=== PATIENT | female | born 1965 | race African-American/Black ===

== ENCOUNTER 2017-04-15 10:57 | Emergency (ER) | payer MEDICARE, MEDICAID ==
[~2017-04-15 10:57] MED LIST: Sodium Chloride 0.9% 1,000 ML BAG ONE
[2017-04-15 11:50] LABS: Bilirubin Negative (Negative); Blood, Urine Negative (Negative); Clarity Clear (Clear); Glucose, Urine (Dipstick) 250 mg/dL (Negative); Leukocyte Negative (Negative); Nitrite Negative (Negative); Protein, Urine (Dipstick) 100 mg/dL (Neg-Trace)
[2017-04-15 12:03] LABS: Bacteria/HPF 1+ HPF (None Seen); RBC/HPF 0-3 HPF (0-3); WBC/HPF 0-3 HPF (0-3)
[2017-04-15 12:44] LABS: #Basophils 0.3 thou/uL (0.0-0.2); #Eosinphils 0.1 thou/uL (0.0-0.7); #Lymphocytes 1.6 thou/uL (1.20-3.40); #Neutrophils 13.1 thou/uL (1.40-6.50); %Basophils 1.8 % (0.0-1.0); %Eosinophils 0.4 % (0.0-10.0); %Monocytes 6.3 % (0.0-10.0); %Neutrophils 81.5 % (42.0-75.0); Hemoglobin 10.9 g/dL (12.0-16.0); Mean Corpuscular HGB CONC 31.4 g/dL (32.0-36.0); Mean Corpuscular Hemoglobin 27.7 pg (27.0-31.0); Mean Corpuscular Volume 88.3 fl (81.0-99.0); Mean Platelet Volume 7.9 fL (7.4-10.4); Platelet Count 424 thou/uL (130-400); Red Blood Cell (RBC) Count 3.93 mill/uL (4.20-5.40); White Blood Cell (WBC) Count 16.1 thou/uL (4.8-10.8)
[2017-04-15 13:03] LABS: ALT (SGPT) 17 U/L (8-55); AST (SGOT) 41 U/L (5-34); Albumin 3.6 g/dL (3.5-5.0); Alkaline Phosphatase 203 U/L (40-150); Anion Gap 17 mmol/L (10-20); BUN (Urea Nitrogen) 16 mg/dL (9.8-20.1); Bilirubin, Total 0.5 mg/dL (0.2-1.2); Calc. Creatinine Clearance 0 mL/min (70-130); Calcium 9.8 mg/dL (7.8-10.44); Carbon Dioxide 26 mmol/L (22-29); Chloride 95 mmol/L (98-107); Estimated GFR-MDRD 74; Globulin 4.5 g/dL (2.4-3.5); Glucose 265 mg/dL (70-105); Lipase 18 U/L (8-78); Potassium 4.8 mmol/L (3.5-5.1); Protein, Total 8.1 g/dL (6.0-8.3); Sodium 133 mmol/L (136-145)
[2017-04-15 13:04] LABS: CKMB 1.2 ng/mL (0-6.6); Troponin I Less than 0.010 ng/mL (< 0.028)
[2017-04-15] MEDS ORDERED: Ondansetron HCl/PF 4 MG/2 ML Vial ONE (13:48)
[2017-04-15] MEDS ORDERED: Ketorolac Tromethamine 30 MG/ML VIAL ONE (13:48)
[2017-04-15] MEDS ORDERED: Pantoprazole 40 MG VIAL ONE (13:48)
== END 2017-04-15 14:45 | disposition home or self-care (01) ==
LOC: MADERS 10:57
DX: K25.9 Gastric ulcer, unspecified as acute or chronic, without hemorrhage or perforation (principal); M10.9 Gout, unspecified; E11.9 Type 2 diabetes mellitus without complications; E78.00 Pure hypercholesterolemia, unspecified; F17.210 Nicotine dependence, cigarettes, uncomplicated; I10 Essential (primary) hypertension; Z79.4 Long term (current) use of insulin; Z79.82 Long term (current) use of aspirin; Z79.899 Other long term (current) drug therapy; Z85.3 Personal history of malignant neoplasm of breast; Z79.02 Long term (current) use of antithrombotics/antiplatelets
CPT/HCPCS: 36415; 80053; 81003; 81015; 82150; 82553; 83605; 83690; 84484; 85025; 87086; 96361; 96374; 96375; C9113; J1885; J2405; J7050

== ENCOUNTER 2017-05-18 11:14 | Emergency (ER) | payer MEDICARE, MEDICAID ==
[2017-05-18 13:45] LABS: Hemoglobin 9.6 g/dL (12.0-16.0); Lymphocytes 16 % (21-51); MDiff Complete? YES; Mean Corpuscular HGB CONC 32.4 g/dL (32.0-36.0); Mean Corpuscular Hemoglobin 27.9 pg (27.0-31.0); Monocytes 3 % (0-10); Neutrophil 81 % (42-75); PLT Morphology Comment Appears Increased; Platelet Count 419 thou/uL (130-400); RBC Distribution Width 14.4 % (11.5-14.5); Red Blood Cell (RBC) Count 3.43 mill/uL (4.20-5.40); White Blood Cell (WBC) Count 16.1 thou/uL (4.8-10.8)
[2017-05-18 14:04] LABS: ALT (SGPT) 28 U/L (8-55); AST (SGOT) 38 U/L (5-34); Albumin 2.9 g/dL (3.5-5.0); Alkaline Phosphatase 218 U/L (40-150); Anion Gap 16 mmol/L (10-20); BUN (Urea Nitrogen) 45 mg/dL (9.8-20.1); Bilirubin, Total 0.4 mg/dL (0.2-1.2); Calc. Creatinine Clearance 0 mL/min (70-130); Calcium 9.3 mg/dL (7.8-10.44); Carbon Dioxide 25 mmol/L (22-29); Chloride 100 mmol/L (98-107); Estimated GFR-MDRD 37; Globulin 4.4 g/dL (2.4-3.5); Glucose 85 mg/dL (70-105); Potassium 4.3 mmol/L (3.5-5.1); Protein, Total 7.3 g/dL (6.0-8.3); Sodium 137 mmol/L (136-145)
--- NOTE | 2017-05-18 14:59 | RAD ---
CHEST ONE VIEW: History: Dyspnea. Comparison: None. FINDINGS: There is an abnormal right hilar mass. There is abnormal opacification of the left lung. No pneumotho rax. IMPRESSION: 1. Abnormal density in the right hilum concerning for mass. 2. Increased airspace opacities throughout the left lung concerning for pneumonia or edema. 3. Calcific densities in the soft tissues of the medial right arm. Humerus radiographs recommended. CODE: T CODE: LUNG NODULE POS: OFF
[2017-05-18 15:27] LABS: Bilirubin Negative (Negative); Blood, Urine Negative (Negative); Clarity Cloudy (Clear); Glucose, Urine (Dipstick) Negative (Negative); Leukocyte Small (Negative); Nitrite Negative (Negative); Protein, Urine (Dipstick) 30 mg/dL (Neg-Trace); Urobilinogen 0.2 mg/dL (0.2-1.0)
[2017-05-18 15:31] LABS: Bacteria/HPF 1+ HPF (None Seen); RBC/HPF None Seen HPF (0-3)
[2017-05-18 15:32] LABS: Crystals/HPF 1+ AMORPH URATES HPF (Negative)
[2017-05-18] MEDS ORDERED: Enoxaparin Sodium 60 MG/0.6 ML SYRINGE ONE (19:39)
[2017-05-18] MEDS ORDERED: Enoxaparin Sodium 30 MG/0.3 ML SYRINGE ONE (19:39)
== END 2017-05-19 00:05 | disposition short-term general hospital (02) ==
LOC: MADERS 11:14
DX: I95.9 Hypotension, unspecified (principal); R09.02 Hypoxemia; E11.9 Type 2 diabetes mellitus without complications; E78.00 Pure hypercholesterolemia, unspecified; F17.210 Nicotine dependence, cigarettes, uncomplicated; Z79.4 Long term (current) use of insulin; Z79.899 Other long term (current) drug therapy; Z79.82 Long term (current) use of aspirin
CPT/HCPCS: 36416; 71045; 80053; 81003; 81015; 83735; 83880; 85025; 93005; 96360; 96361; 96372; J1650; J7050

== ENCOUNTER 2017-05-27 01:26 | Emergency (ER) | payer MEDICARE, MEDICAID ==
[2017-05-27 02:14] LABS: #Basophils 0.2 thou/uL (0.0-0.2); #Eosinphils 0.1 thou/uL (0.0-0.7); #Lymphocytes 1.3 thou/uL (1.20-3.40); #Monocytes 0.6 thou/uL (0.11-0.59); #Neutrophils 11.3 thou/uL (1.40-6.50); %Basophils 1.2 % (0.0-1.0); %Eosinophils 0.8 % (0.0-10.0); %Lymphocytes 9.5 % (21.0-51.0); %Monocytes 4.7 % (0.0-10.0); %Neutrophils 83.8 % (42.0-75.0); Hemoglobin 9.3 g/dL (12.0-16.0); Mean Corpuscular HGB CONC 31.3 g/dL (32.0-36.0); Mean Corpuscular Hemoglobin 27.6 pg (27.0-31.0); Mean Corpuscular Volume 88.3 fl (81.0-99.0); Mean Platelet Volume 7.9 fL (7.4-10.4); Platelet Count 430 thou/uL (130-400); RBC Distribution Width 15.1 % (11.5-14.5); Red Blood Cell (RBC) Count 3.37 mill/uL (4.20-5.40); White Blood Cell (WBC) Count 13.5 thou/uL (4.8-10.8)
[2017-05-27 02:34] LABS: ALT (SGPT) 19 U/L (8-55); AST (SGOT) 29 U/L (5-34); Albumin 3.2 g/dL (3.5-5.0); Alkaline Phosphatase 224 U/L (40-150); Anion Gap 16 mmol/L (10-20); BUN (Urea Nitrogen) 22 mg/dL (9.8-20.1); Bilirubin, Total 0.2 mg/dL (0.2-1.2); CK (CPK) 52 U/L (29-168); Calc. Creatinine Clearance 0 mL/min (70-130); Carbon Dioxide 18 mmol/L (22-29); Chloride 110 mmol/L (98-107); Estimated GFR-MDRD 45; Glucose 95 mg/dL (70-105); Lipase 22 U/L (8-78); Protein, Total 7.2 g/dL (6.0-8.3); Sodium 140 mmol/L (136-145)
[2017-05-27 02:37] LABS: CKMB 2.2 ng/mL (0-6.6); Troponin I Less than 0.010 ng/mL (< 0.028)
[2017-05-27] MEDS ORDERED: Cefepime 1 GM VIAL ONE (02:47)
--- NOTE | 2017-05-27 07:51 | RAD ---
CHEST 1 VIEW: HISTORY: Altered mental status. COMPARISON: Chest 1 view 05/18/17. FINDINGS: Right perihilar opacity persists and is concerning for a mass. There are patchy airspace opacities i n both lungs. No pneumothorax. IMPRESSION: Similar examination of the chest. Right perihilar opacity concerning for underlying malignant proces s. There are patchy opacities in the left mid lung and left lower lung which may be sequelae of pneu monia, edema, or other mass. A followup PET CT is recommended. POS: SHANNAH
[2017-05-27] MEDS ORDERED: Sodium Chloride 0.9% 1,000 ML BAG ONE (14:15)
== END 2017-05-27 04:43 | disposition short-term general hospital (02) ==
LOC: MADERS 01:26
DX: A41.9 Sepsis, unspecified organism (principal); J18.9 Pneumonia, unspecified organism; E86.0 Dehydration; E11.649 Type 2 diabetes mellitus with hypoglycemia without coma; I10 Essential (primary) hypertension; M10.9 Gout, unspecified; E78.00 Pure hypercholesterolemia, unspecified; F17.210 Nicotine dependence, cigarettes, uncomplicated; Z85.3 Personal history of malignant neoplasm of breast; Z79.4 Long term (current) use of insulin; Z79.52 Long term (current) use of systemic steroids; Z79.02 Long term (current) use of antithrombotics/antiplatelets; Z79.82 Long term (current) use of aspirin; Z79.899 Other long term (current) drug therapy
CPT/HCPCS: 36416; 71045; 80053; 82553; 83605; 83690; 84484; 85025; 87040; 94640; 94760; 96361; 96365; 96375; 36415-59; J0692; J3370; J7050; J7620

== ENCOUNTER 2017-06-22 14:05 | Emergency (ER) | payer MEDICARE, MEDICAID ==
[~2017-06-22 14:05] MED LIST changes: +Sodium Chloride 0.9% 100 ML BAG ONE
[2017-06-22 14:45] LABS: Troponin I 0.029 ng/mL (< 0.028)
[2017-06-22 14:46] LABS: Anion Gap 22 mmol/L (10-20); BUN (Urea Nitrogen) 27 mg/dL (9.8-20.1); Calc. Creatinine Clearance 0 mL/min (70-130); Calcium 9.6 mg/dL (7.8-10.44); Carbon Dioxide 20 mmol/L (22-29); Chloride 99 mmol/L (98-107); Estimated GFR-MDRD 23; Glucose 242 mg/dL (70-105); Potassium 6.2 mmol/L (3.5-5.1); Sodium 135 mmol/L (136-145)
--- NOTE | 2017-06-22 14:46 | RAD ---
PORTABLE CHEST 1 VIEW: DATE: 06/22/17. TIME: 2:12 p.m. HISTORY: Altered mental status. FINDINGS/IMPRESSION: Comparison is made with the exam of 05/27/17. The heart size is stable. Bilateral perihilar patchy opacities are seen. No pneumothoraces or large effusions are identified. There are postop changes of right rotator cuff repair. Findings may be due to pneumonia. A followup exam should be obtained after a course of antibiotics. POS: DOLORES
[2017-06-22 14:55] LABS: Hemoglobin 9.2 g/dL (12.0-16.0); Lymphocytes 8 % (21-51); MDiff Complete? YES; Mean Corpuscular HGB CONC 31.1 g/dL (32.0-36.0); Mean Corpuscular Hemoglobin 26.7 pg (27.0-31.0); Mean Corpuscular Volume 85.6 fl (81.0-99.0); Mean Platelet Volume 7.6 fL (7.4-10.4); Monocytes 6 % (0-10); Neutrophil 86 % (42-75); PLT Morphology Comment Appears Increased; Platelet Count 423 thou/uL (130-400); RBC Distribution Width 15.6 % (11.5-14.5); Red Blood Cell (RBC) Count 3.44 mill/uL (4.20-5.40); White Blood Cell (WBC) Count 20.4 thou/uL (4.8-10.8)
[2017-06-22] MEDS ORDERED: Calcium Gluc 4.6 MEQ/10 ML (100 MG/ML) ONE ×2 (14:58→15:04)
== END 2017-06-22 16:21 | disposition short-term general hospital (02) ==
LOC: MADERS 14:05
DX: A41.9 Sepsis, unspecified organism (principal); D64.9 Anemia, unspecified; E87.5 Hyperkalemia; J18.9 Pneumonia, unspecified organism; E11.9 Type 2 diabetes mellitus without complications; I10 Essential (primary) hypertension; M10.9 Gout, unspecified; F17.210 Nicotine dependence, cigarettes, uncomplicated; Z79.84 Long term (current) use of oral hypoglycemic drugs; Z79.82 Long term (current) use of aspirin; Z79.899 Other long term (current) drug therapy
CPT/HCPCS: 71045; 80048; 82553; 83605; 83880; 84484; 85025; 87040; 93005; 94760; 96365; 96367; J1956; J3370; J7050; J7620